=== PATIENT | male | born 1955 | race African-American/Black ===

== ENCOUNTER 2022-06-19 10:01 | Emergency (ER) | payer OTHER, SELFPAY ==
--- NOTE | ~2022-06-19 | XR_ITS ---
XR finger 4th LT min 2V DATE: 06/19/2022 13:00 INDICATION: Reduction of fourth digit dislocation TECHNIQUE: 3 views COMPARISON: June 19, 2022 left fourth digit FINDINGS: There is nearly complete reduction of the previous complete dorsal dislocation of the proxi mal interphalangeal joint. However, there appears to be a volar fracture fragment from the base of th e middle phalanx in the proximal interphalangeal joint. There is a slightly dorsally displaced small dorsal fracture of the base of the middle phalanx. 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 Reviewed, dictated and finalized at [facility]. IMPRESSION: Nearly complete reduction of dorsal and dislocation of the proximal interphalangeal joint, but there is a probable fracture fragment from the ante rior base of the middle phalanx in the proximal interphalangeal joint Small fracture at the dorsal base of the middle phalanx, slightly posteriorly d isplaced Prominent soft tissue swelling of the proximal interphalangeal joint.
--- NOTE | ~2022-06-19 | XR_ITS ---
PA, oblique, and lateral views of the left fourth finger CLINICAL HISTORY: Injury FINDINGS: There is dorsal dislocation at the fourth PIP joint. There are probable small fracture frag ments, most likely related to avulsion fracture from the volar aspect of the base of the fourth proxi mal phalanx. Also incidentally noted is an oblique, nearly nondisplaced fracture through the third mi ddle phalangeal shaft. There is additional probable oblique intra-articular fracture at the radial as pect of the base of the third middle phalanx. Soft tissues are unremarkable. IMPRESSION: Complete dorsal dislocation at the fourth PIP joint, probable small avulsion fracture from the volar aspect of the base of the fourth middle phalanx. Oblique fracture involving the midshaft of the third middle phalanx with additional oblique intra-art icular fracture at the radial aspect of the base of the third middle phalanx. Reviewed, dictated and finalized at [facility]. IMPRESSION: Complete dorsal dislocation at the fourth PIP joint, probable small avulsion fr acture from the volar aspect of the base of the fourth middle phalanx. Oblique fracture involving the midshaft of the third middle phalanx with additi onal oblique intra-articular fracture at the radial aspect of the base of the t hird middle phalanx.
[2022-06-19 10:21] VITALS: BP 121/77; PULSE 67; RESP 16; TEMP 36.6; O2SAT 100
[2022-06-19] MEDS: LIDOCAINE HCL 1% LOCAL INJ 10 ML VIAL 2 ML INFILTRATE (12:47)
[2022-06-19] MEDS: TETANUS,DIPHTHERIA,AC PERTUSSIS ADULT (0.5 ML) BOOSTRIX IM (13:03)
--- NOTE | 2022-06-19 13:48 | ED.UPPEXIN ---
HPI - Extremity Injury (Upper) General Chief Complaint: Extremity Injury, Upper Stated Complaint: left middle finger lac at work Time Seen by Provider: 06/19/22 11:05 History of Present Illness HPI narrative: Patient is a 67-year-old male who presents ER with finger injury. Left hand fourth digit there is a laceration proximal to the PIP. There is also deformity of the affected finger. There is additional bruising and pain to the middle phalanx of the third digit. No numbness or tingling. Patient was using a jackhammer when it slipped and struck his hand. Unsure of his last tetanus shot. No additional injuries. Related Data Allergies Allergy/AdvReac Type Severity Reaction Status Date / Time No Known Allergies Allergy Verified 06/19/22 10:02 Review of Systems Review of Systems: All systems reviewed & are unremarkable except as noted in HPI and below Musculoskeletal: Musculoskeletal: Reports arthralgias, Reports joint swelling and Denies muscle cramps Integumentary/Breasts: Skin/Breast: Denies erythema and Denies rash Comments: Bruising of the third digit, laceration of the fourth digit of the left hand. Neurologic: Denies headache(s), Denies focal weakness and Denies numbness PMFSH Past Medical History Medical History (Updated 06/19/22 @ 19:01 by Lenin Soliman MD) Healthy adult male Surgical History Surgical History (Updated 06/19/22 @ 19:01 by Lenin Soliamn MD) No pertinent past surgical history Exam Narrative: GENERAL: Well-appearing, well-nourished, and in no acute distress. HEAD: Normocephalic, atraumatic. CHEST: Clear to auscultation. No respiratory distress. HEART: Regular rate and rhythm. Normal peripheral pulses. EXTREMITIES: Left hand with bruising and tenderness to the third digit middle phalanx. Fourth digit with dislocation of the PIP as well as a palmar laceration at the PIP that is 2.5 cm in width and . In a bloodless field a flexor tendon can be seen and is intact. Patient has limited range of motion due to pain. Neurovascular intact in the fingers of the affected extremity. SKIN: Warm, dry, no rash. NEURO: Alert and oriented x3. PSYCH: Normal mood and affect. Course Course Emergency Course: I discussed the case with Dr. Sethi. The finger has been reduced, irrigated, and closed. Patient will be placed in a finger splint to reduce mobility. Dr. Sethi would like the patient to follow-up in clinic tomorrow or Thursday and the patient should call the clinic after discharge. Patient will be started on pain medication as well as doxycycline at home per recommendations of hand surgeon. Patient also be given a work note. Patient verbalized understanding of the treatment plan. No recommendation for IV antibiotics. Vital Signs Vital signs: Vital Signs Temperature 97.9 F 06/19/22 10:21 Pulse Rate 67 06/19/22 10:21 Respiratory Rate 16 06/19/22 10:21 Blood Pressure 121/77 06/19/22 10:21 Pulse Oximetry 100 06/19/22 10:21 Temperature 97.9 F 06/19/22 10:21 Pulse Rate 67 06/19/22 10:21 Respiratory Rate 16 06/19/22 10:21 Blood Pressure 121/77 06/19/22 10:21 Pulse Oximetry 100 06/19/22 10:21 Procedures Laceration Laceration 1: Date: 06/19/22 Time: 12:40 Site: other (4th digit) Side (If applicable): left Size (cm): 2.5 Description: linear Depth: simple, single layer Local Anesthetic: lidocaine 1% Amount of anesthesia used (mL): 2 Pre-repair: wound explored, irrigated extensively and deep structures intact ====== Skin Level ====== Skin layer closed with: nylon Size (cm): 5-0 Number of sutures: 5 Technique: simple, interrupted ====== Subcutaneous Layer ====== ====== Muscle Layer ====== ====== Tendon Layer ====== Orthopedic Joint Reduction Joint #1: Orthopedic Joint Reduction Date: 06/19/22 Orthopedic [facility]
== END 2022-06-19 14:13 | disposition home or self-care (01) ==
PROVIDERS: Emergency Provider Emergency Medicine; PCP Internal Medicine
DX: S62.625A Displaced fracture of middle phalanx of left ring finger, initial encounter for closed fracture (principal); Z23 Encounter for immunization; W31.0XXA Contact with mining and earth-drilling machinery, initial encounter
CPT/HCPCS: 12001; 26770; 73140; 90471; 90715; 99285